=== PATIENT | male | born 1965 | race Caucasian/White ===

== ENCOUNTER 2016-10-20 12:18 | Inpatient (IN) | payer MEDICAID, SELFPAY ==
[~2016-10-20] VITALS: Ht 180.3 cm; Wt 90.2 kg
[2016-10-20 12:57] LABS: HEMATOCRIT 39.4 % (39.2-51.8); HEMOGLOBIN 13.4 g/dL (13.7-18.0); WHITE BLOOD COUNT 6.5 x10^3/uL (3.4-10)
[2016-10-20] MEDS ORDERED: MIDAZOLAM 1 MG/ML, 2ML IVPush ONE (13:00)
[2016-10-20] MEDS ORDERED: SODIUM CHLORIDE 0.9% 1,000ML IVBOLUS ONE (13:00)
[2016-10-20 13:02] LABS: ASPARTATE AMINO TRANSFERASE 28 U/L (15-37); BLOOD UREA NITROGEN 16 mg/dL (7-18)
[2016-10-20 13:07] LABS: ACETAMINOPHEN < 2 mcg/mL (10-30)
[2016-10-20] MEDS ORDERED: PROPOFOL 100 ML IV PRN (13:57)
[2016-10-20] MEDS ORDERED: VECURONIUM 10 MG ONE (14:00)
[2016-10-20] MEDS ORDERED: SUCCINYLCHOLINE 20 MG/ML, 10ML IVPush ONE (14:00)
[2016-10-20] MEDS ORDERED: PROPOFOL 10 MG/ML, 20ML IVP ONE (14:00)
[2016-10-20] MEDS ORDERED: ETOMIDATE 20 MG/10 ML ONE (14:00)
[2016-10-20] MEDS ORDERED: ETOMIDATE 20 MG/10 ML IV ONE (14:00)
[2016-10-20] MEDS ORDERED: MIDAZOLAM 1 MG/ML, 5ML ONE (14:00)
[2016-10-20 14:28] LABS: ABG COLLECTION SITE RIGHT BRACHIAL
[2016-10-20] MEDS ORDERED: ONDANSETRON 2MG/ML, 2ML IVPush PRN (14:30)
[2016-10-20] MEDS ORDERED: VECURONIUM 10 MG IVPush ONE (14:30)
[2016-10-20] MEDS ORDERED: LORazepam 2 MG/ML, 1ML IVPush PRN (14:30)
[2016-10-20] MEDS ORDERED: SODIUM CHLORIDE 0.9%, 500ML IVBOLUS ONE (14:30)
[2016-10-20] MEDS ORDERED: morphine SULFATE 10 MG/ML, 1ML IVPush PRN (14:30)
[2016-10-20] MEDS ORDERED: ENOXAPARIN 40 MG/0.4 ML SQ SCH (14:30)
[2016-10-20] MEDS ORDERED: POLYETHYLENE GLYCOL 17 GM PACKET PO PRN (14:30)
[2016-10-20] MEDS ORDERED: LABETALOL 5MG/ML, 20ML IVPush PRN (14:30)
[2016-10-20] MEDS ORDERED: GABA800T2 PO (14:39)
[2016-10-20] MEDS ORDERED: DOXE50CA PO (14:39)
[2016-10-20] MEDS ORDERED: HYDR25TA11 PO (14:39)
[2016-10-20] MEDS ORDERED: SILD100T PO (14:39)
[2016-10-20] MEDS ORDERED: METH40TA3 PO (14:39)
[2016-10-20] MEDS ORDERED: LACT10SO28 PO (14:39)
[2016-10-20] MEDS ORDERED: MIDAZOLAM 1 MG/ML, 5ML IVP ONE (15:00)
[2016-10-20] MEDS: SODIUM CHLORIDE 0.9% 1,000 ML IV SCH (15:05)
[2016-10-20] MEDS ORDERED: LIDOCAINE-MPF 1%, 2ML ENDO PRN (15:30)
[2016-10-20] MEDS ORDERED: FENTANYL PF 100 MCG/2ML IVPush PRN (15:30)
[2016-10-20] MEDS ORDERED: PHARMACY MAY ADJ FOR RENAL FX MC SCH (15:30)
[2016-10-20] MEDS ORDERED: BISACODYL 10 MG SUPP PR PRN (15:30)
[2016-10-20] MEDS ORDERED: SENNOSIDES 8.8 MG/5 ML ORAL SOL NG PRN (15:30)
[2016-10-20] MEDS ORDERED: SENNA/DOCUSATE TABLET NG PRN (15:30)
[2016-10-20] MEDS: ALBUTEROL/IPRATROPIUM 2.5MG/0.5MG, 3 ML INLINE SCH ×3 (15:30→22:18)
[2016-10-20] MEDS ORDERED: SODIUM CHLORIDE 0.9% 1,000ML IV SCH ×2 (15:30→16:30)
[2016-10-20] MEDS ORDERED: LACTULOSE 20 GM/30 ML UDC NG PRN (15:30)
[2016-10-20] MEDS: AMPICILLIN/SULBACTAM 3 GM in SODIUM CHLORIDE 0.9% 100 ML IV SCH ×2 (15:32→20:26)
[2016-10-20] MEDS ORDERED: FAMOTIDINE 20 MG/2 ML IV SCH (16:00)
[2016-10-20 16:01] LABS: DAU SCREEN DISCLAIMER
[2016-10-20] MEDS: PROPOFOL 100 ML IV PRN ×2 (16:10→21:18)
[2016-10-20] MEDS: ENOXAPARIN 40 MG/0.4 ML SQ SCH (16:20)
[2016-10-20 17:15] LABS: ABG COLLECTION SITE RIGHT BRACHIAL
[2016-10-21] MEDS: ACETAMINOPHEN 325 MG TABLET PO PRN (00:57)
[2016-10-21] MEDS: ALBUTEROL/IPRATROPIUM 2.5MG/0.5MG, 3 ML INLINE SCH ×2 (01:36→07:30)
[2016-10-21] MEDS: AMPICILLIN/SULBACTAM 3 GM in SODIUM CHLORIDE 0.9% 100 ML IV SCH ×4 (02:26→21:37)
[2016-10-21] MEDS: SODIUM CHLORIDE 0.9% 1,000 ML IV SCH (02:28)
[2016-10-21 04:18] VITALS: BP 90/56
[2016-10-21 04:42] LABS: ABG COLLECTION SITE RIGHT RADIAL; COLLATERAL CIRCULATION TESTING NORMAL
[2016-10-21 04:48] LABS: HEMATOCRIT 36.2 % (39.2-51.8); HEMOGLOBIN 12.2 g/dL (13.7-18.0); WHITE BLOOD COUNT 12.8 x10^3/uL (3.4-10)
[2016-10-21 04:57] LABS: BLOOD UREA NITROGEN 9 mg/dL (7-18)
[2016-10-21 05:00] LABS: ASPARTATE AMINO TRANSFERASE 20 U/L (15-37)
[2016-10-21] MEDS ORDERED: PANTOPRAZOLE 40 MG IV IVPush SCH (07:30)
[2016-10-21] MEDS: SENNA/DOCUSATE TABLET PO SCH (08:56)
[2016-10-21] MEDS: DOXEPIN 25 MG CAPSULE PO SCH (10:35)
[2016-10-21] MEDS: ENOXAPARIN 40 MG/0.4 ML SQ SCH (15:33)
[2016-10-21] MEDS: GABAPENTIN 400 MG CAPSULE PO SCH ×2 (15:34→21:34)
[2016-10-21 16:12] VITALS: BP 135/74
[2016-10-21 18:36] VITALS: BP 158/71
[2016-10-21] MEDS: BENZONATATE 100 MG CAPSULE PO SCH (21:34)
[2016-10-21] MEDS: DIPHENHYDRAMINE 12.5MG/5ML, 10ML UDC PO PRN (21:34)
[2016-10-21] MEDS: SODIUM CHLORIDE FLUSH 10ML SYR IVF SCH (21:42)
[2016-10-22 00:26] VITALS: BP 125/85
[2016-10-22] MEDS: ACETAMINOPHEN 325 MG TABLET PO PRN (00:38)
[2016-10-22] MEDS: AMPICILLIN/SULBACTAM 3 GM in SODIUM CHLORIDE 0.9% 100 ML IV SCH ×3 (02:35→14:18)
[2016-10-22 05:53] LABS: HEMATOCRIT 36.1 % (39.2-51.8); HEMOGLOBIN 12.1 g/dL (13.7-18.0); WHITE BLOOD COUNT 10.9 x10^3/uL (3.4-10)
[2016-10-22 06:01] LABS: BLOOD UREA NITROGEN 7 mg/dL (7-18)
[2016-10-22 06:31] VITALS: BP 142/82
[2016-10-22] MEDS: SENNA/DOCUSATE TABLET PO SCH (08:14)
[2016-10-22] MEDS: BENZONATATE 100 MG CAPSULE PO SCH ×3 (08:14→19:41)
[2016-10-22] MEDS: DOXEPIN 25 MG CAPSULE PO SCH (08:14)
[2016-10-22] MEDS: GABAPENTIN 400 MG CAPSULE PO SCH ×3 (08:14→19:41)
[2016-10-22] MEDS: METHADONE 10 MG TABLET PO SCH (08:14)
[2016-10-22] MEDS: SODIUM CHLORIDE FLUSH 10ML SYR IVF SCH ×2 (08:15→19:41)
[2016-10-22 13:36] VITALS: BP 128/77
[2016-10-22] MEDS: ENOXAPARIN 40 MG/0.4 ML SQ SCH (15:22)
[2016-10-22] MEDS: PIPERACILLIN/TAZO/PMX 3.375GM 50 ML IV SCH (18:02)
[2016-10-22] MEDS: FLUTICASONE NASAL SPRAY 16GM NAS SCH (19:41)
[2016-10-22 19:51] VITALS: BP 114/78
[2016-10-22] MEDS: DIPHENHYDRAMINE 12.5MG/5ML, 10ML UDC PO PRN (21:36)
[2016-10-23] MEDS: PIPERACILLIN/TAZO/PMX 3.375GM 50 ML IV SCH ×4 (00:06→19:56)
[2016-10-23 02:47] VITALS: BP 110/72
[2016-10-23 05:15] LABS: HEMATOCRIT 35.1 % (39.2-51.8); HEMOGLOBIN 11.8 g/dL (13.7-18.0); WHITE BLOOD COUNT 6.4 x10^3/uL (3.4-10)
[2016-10-23 05:24] LABS: BLOOD UREA NITROGEN 7 mg/dL (7-18)
[2016-10-23 06:40] VITALS: BP 126/86
[2016-10-23] MEDS: BENZONATATE 100 MG CAPSULE PO SCH ×3 (08:50→19:56)
[2016-10-23] MEDS: SENNA/DOCUSATE TABLET PO SCH (08:50)
[2016-10-23] MEDS: FLUTICASONE NASAL SPRAY 16GM NAS SCH ×2 (08:50→19:56)
[2016-10-23] MEDS: GABAPENTIN 400 MG CAPSULE PO SCH ×3 (08:50→19:56)
[2016-10-23] MEDS: METHADONE 10 MG TABLET PO SCH (08:50)
[2016-10-23] MEDS: DOXEPIN 25 MG CAPSULE PO SCH (08:51)
[2016-10-23] MEDS: SODIUM CHLORIDE FLUSH 10ML SYR IVF SCH ×2 (08:51→19:57)
[2016-10-23] MEDS ORDERED: METHADONE 5 MG TABLET PO ONE (13:00)
[2016-10-23 13:30] VITALS: BP 125/81
[2016-10-23] MEDS: ENOXAPARIN 40 MG/0.4 ML SQ SCH (16:21)
[2016-10-23 19:17] VITALS: BP 138/87
[2016-10-23] MEDS: DIPHENHYDRAMINE 12.5MG/5ML, 10ML UDC PO PRN (20:20)
[2016-10-24 01:34] VITALS: BP 107/76
[2016-10-24] MEDS: PIPERACILLIN/TAZO/PMX 3.375GM 50 ML IV SCH ×2 (01:37→07:53)
[2016-10-24 05:43] LABS: HEMATOCRIT 35.8 % (39.2-51.8); WHITE BLOOD COUNT 6.5 x10^3/uL (3.4-10)
[2016-10-24 05:45] LABS: BLOOD UREA NITROGEN 9 mg/dL (7-18)
[2016-10-24 06:56] VITALS: BP 134/84
[2016-10-24] MEDS ORDERED: LEVO500T33 PO (07:12)
[2016-10-24] MEDS ORDERED: SULF1TAB24 PO (07:21)
[2016-10-24] MEDS: FLUTICASONE NASAL SPRAY 16GM NAS SCH (07:53)
[2016-10-24] MEDS: BENZONATATE 100 MG CAPSULE PO SCH (07:54)
[2016-10-24] MEDS: DOXEPIN 25 MG CAPSULE PO SCH (07:54)
[2016-10-24] MEDS: GABAPENTIN 400 MG CAPSULE PO SCH (07:54)
[2016-10-24] MEDS: SENNA/DOCUSATE TABLET PO SCH (07:56)
[2016-10-24] MEDS: SODIUM CHLORIDE FLUSH 10ML SYR IVF SCH (07:58)
== END 2016-10-24 08:45 | disposition home or self-care (01) | DRG 917 ==
LOC: ED 13:50 → EDIP 13:51 → ED 14:27 → ICU 15:45 → 3NE 10-21 15:48
PROVIDERS: ADMIT Internal Medicine; ATTEND Internal Medicine
PROC: 5A1945Z Respiratory Ventilation, 24-96 Consecutive Hours (ICD-10-PCS; principal; 2016-10-20)
PROC: 0BH17EZ Insertion of Endotracheal Airway into Trachea, Via Natural or Artificial Opening (ICD-10-PCS; 2016-10-20)
DX: T40.601A Poisoning by unspecified narcotics, accidental (unintentional), initial encounter (principal); G93.41 Metabolic encephalopathy; J96.00 Acute respiratory failure, unspecified whether with hypoxia or hypercapnia; F11.20 Opioid dependence, uncomplicated; J98.11 Atelectasis; Z99.11 Dependence on respirator [ventilator] status; T40.3X1A Poisoning by methadone, accidental (unintentional), initial encounter; G62.9 Polyneuropathy, unspecified; G89.4 Chronic pain syndrome; I10 Essential (primary) hypertension; J32.0 Chronic maxillary sinusitis; Z51.5 Encounter for palliative care; Z78.1 Physical restraint status; Y92.89 Other specified places as the place of occurrence of the external cause; Z82.49 Family history of ischemic heart disease and other diseases of the circulatory system; Z83.3 Family history of diabetes mellitus
CPT/HCPCS: 31500; 36415; 36600; 70450; 71010; 80048; 80053; 80307; 80329; 82140; 82803; 82962; 83735; 84100; 84478; 85025; 87040; 87070; 87077; 87081; 87186; 87205; 93005; 94002; 94003; 94640; 96374; 96375; 96376; J0295; J1650; J2250; J2543; J2704; J7620; C9113; G0480; J0330; J7030; J7040